=== PATIENT | female | born 1940 | race Caucasian/White ===

== ENCOUNTER 2024-01-08 22:32 | Inpatient (IN) | payer MEDICARE, SELFPAY ==
--- NOTE | 2024-01-08 22:48 | HPE_ITS ---
Date of service: 01/08/24 Time of Service: 23:40 Assessment and Plan Assessment and plan (1) Subcapital fracture of right femur: Status: Acute Assessment and plan: - Sustained after a fall 3 days prior to arrival to the emergency department 8 [facility] -Diagnosed on imaging at [facility] -Discussed case with orthopedic surgeon Dr. Coronado who will take patient to the OR today 01/09/2024 -Continue as needed IV morphine 1 mg every 4 hours -Appreciate PT consultation for postop evaluation (2) HTN (hypertension): Status: Chronic Assessment and plan: - Hold home antihypertensives at this time (3) COPD without exacerbation: Assessment and plan: - Continue home inhaler regimen History of Present Illness History of Present Illness Chief Complaint: right hip pain Narrative: 83-year-old female with past medical history of hypertension, and COPD presents to [facility] as a transfer from [facility] emergency department after experiencing right hip fracture. Patient states that she been in her usual state of health but 3 days ago she fell on her right side onto her hip. She experienced some pain but over the subsequent 3 days has been able to ambulate with her walker. However, the pain progressively got worse which prompted her presented to [facility]. While at [facility] emergency department patient had normal vital signs, physical exam was suggestive of a right hip fracture with shortened and internally rotated right hip which was confirmed on imaging to have be a right subcapital femoral neck fracture. [facility] did not have orthopedic surgery coverage over the weekend and ultimately was able to discuss case with Dr. Coronado of orthopedics at [facility] stated he would be able to operate on the patient this weekend. At which time [facility] emergency room physician Dr. Goodrich reached out to [facility] hospitalist for admission for patient with a right hip fracture requiring surgical intervention. Review of Systems All systems reviewed & are unremarkable except as noted in HPI and below PFSH All Active Problems (Updated 01/09/24 @ 06:50 by Palmer Vora MD) HTN (hypertension) (Chronic) Subcapital fracture of right femur (Acute) Medical History (Updated 01/09/24 @ 06:50 by Palmer Vora MD) COPD without exacerbation Social History Smoking/Tobacco Use Status: Never Tobacco: How many years used: 30 Smoking risk assessment performed?: Yes Alcohol Intake: never Housing: assisted living facility Do you feel safe at home: Yes Do you feel safe in your relationship?: Yes Additional Social history: lives with Meds Allergies and Home Medications Allergies Allergy/AdvReac Type Severity Reaction Status Date / Time amitriptyline AdvReac Unknown Other (See Verified 01/09/24 02:25 Comment) Home Medications Medication Instructions Recorded Confirmed Type FLUTIC 2 spray intranasal DAILY 01/09/24 01/09/24 History acetaminophen 500 mg capsule 500 mg PO Q6H PRN 01/09/24 01/09/24 History albuterol sulfate 90 mcg/actuation 2 inh inhalation Q4H PRN 01/09/24 01/09/24 History aerosol inhaler alprazolam 0.5 mg tablet 0.5 mg PO BID-TID PRN 01/09/24 01/09/24 History amlodipine 10 mg tablet 10 mg PO DAILY 01/09/24 01/09/24 History atorvastatin 10 mg tablet 10 mg PO QHS 01/09/24 01/09/24 History betamethasone, augmented 0.05 % 1 applic topical DAILY PRN 01/09/24 01/09/24 History topical ointment cholecalciferol (vitamin D3) 25 cap PO DAILY 01/09/24 01/09/24 History cyclobenzaprine 10 mg tablet 10 mg PO HS 01/09/24 01/09/24 History fexofenadine 180 mg tablet 180 mg PO DAILY 01/09/24 01/09/24 History (Allergy Relief (fexofenadine)) fluticasone 100 mcg-salmeterol 50 1 inh inhalation BID 01/09/24 01/09/24 History mcg/dose blistr powdr for inhalation (Advair Diskus) lisinopril 40 mg tablet 40 mg PO DAILY 01/09/24 01/09/24 History magnesium oxide 400 mg PO BID 01/09/24 01/09/24 History metoprolol tartrate 50 mg tablet 50 mg PO BID 01/09/24 01/09/24 History multivitamin-ferrous 1 tab PO DAILY 01/09/24 01/09/24 History fumarate-folic acid 18 mg-400 mcg tablet (Centrum Complete) omeprazole 40 mg capsule,delayed 40 mg PO DAILY 01/09/24 01/09/24 History release simethicone 125 mg capsule (Gas 125 mg PO BID PRN 01/09/24 01/09/24 History Relief (simethicone)) solifenacin 10 mg tablet 10 mg PO DAILY 01/09/24 01/09/24 History thiamine HCl (vitamin B1) 100 mg 100 mg PO DAILY 01/09/24 01/09/24 History tablet triamcinolone acetonide 0.1 % 1 applic topical DAILY 01/09/24 01/09/24 History lotion Exam Narrative Exam Narrative: Well-appearing older female laying in bed in no acute distress, ANO x 4, heart regular rhythm, lungs clear to auscultation bilaterally, abdomen soft, nontender, nondistended, right lower extremity shortened and externally rotated Results Labs 01/09/24 06:04 01/09/24 06:04 Time Spent Time spent with Patient: >75 minutes Time was spent: preparing to see the patient(eg.review tests), obtaining and/or reviewing separately otained hiistory, ordering medications,tests, procedures, referring, communicating with other health acute care physical therapist, indepentently interpreting results, counseling the patient and care coordination
[2024-01-09 01:53] VITALS: BP 155/69; PULSE 70; RESP 19; TEMP 36.4; O2SAT 92
[2024-01-09] MEDS: Acetaminophen 325 MG TAB PO (03:03)
[2024-01-09 03:33] VITALS: BP 155/69; PULSE 70; RESP 19; TEMP 36.4; O2SAT 92
[2024-01-09 06:41] LABS: HCT 34.3 % (36.0-46.0); HGB 11.6 g/dL (11.2-15.7); MCH 30.9 pg (27.0-33.0); MCHC 33.8 % (32.0-36.0); MCV 91 fL (80-95); MPV 9.5 fL (8.0-11.0); Platelet Count 229 10^3/uL (130-400); RBC 3.76 10^6/uL (3.93-5.22); RDW 13.3 % (11.7-14.6); RDW-SD 44.9 fL; WBC 5.67 10^3/uL (4.4-10.8)
[2024-01-09] MEDS: MORPHine 2 MG/ML SYR 1 MG IVP (06:44)
[2024-01-09 06:57] LABS: BUN 27 mg/dL (7-18); CREATININE 1.3 mg/dL (0.55-1.02); Calcium 9.2 mg/dL (8.5-10.1); Chloride 102 mmol/L (98-107); Estimated GFR 41.06 (mL/min/1.73m2); Glucose 101 mg/dL (74-106); Magnesium 1.6 mg/dL (1.8-2.4); Potassium 4.4 mmol/L (3.5-5.1); Sodium 137 mmol/L (136-145)
[2024-01-09 07:17] VITALS: BP 155/68; PULSE 68; RESP 18; TEMP 36; O2SAT 91
--- NOTE | 2024-01-09 07:53 | OCONE_ITS ---
Date of service: 01/09/24 Time of Service: 07:15 History of Present Illness History of Present Illness Chief Complaint: Right Hip Pain Narrative: Lilia is an 83-year-old functionally dependent female who presents in transfer from [facility] for a right hip fracture. She reports falling, with mechanical fall, on Thursday. She was able to get up but had notable pain with weightbearing. She did utilize a walker with only partial weightbearing on the right leg. She saw her primary care practitioner on Thursday who obtained an x-ray showing a hip fracture on the right side. She was at [facility] but they had no orthopedic coverage and are unable to find other sites for transfer. I excepted the patient for surgery with the hospitalist managing. She reports being her usual state of health. She has had no acute medical exacerbations. She does report having arthritis throughout her whole body including her back and her knees. She does not report the right hip as being a significant limiting factor or a cause of pain prior to her fall. While she is not ambulating, she has had minimal pain. She denies numbness or tingling. She does describe some weakness in her legs with prolonged ambulation prior to her fall. She reports groin pain when she walks. No pain down the leg. She has some baseline pain in the knee which is no different than it usually is. Consult Reason Right femoral neck fracture Assessment and Plan Assessment and plan (1) Subcapital fracture of right femur: Status: Acute Assessment and plan: Lilia is an 83-year-old female who fell on Thursday. She has been able to minimally ambulate over the past few days but with pain. She was seen in [facility] and diagnosed with a subcapital femoral neck fracture. Wanted denies significant pain even with examination. She was able to walk on this, although with assistance. For these reasons this seems to be a stable variety of femoral neck fracture which could heal nonoperatively but typically be fixed with screws to prevent any further displacement. However, we do not know is if there is any disruption of the blood vessel significant enough to lead to avascular necrosis, osteonecrosis, which would limit terminal healing and potentially lead to complications requiring further intervention. There is a trend in the literature to move towards arthroplasty in the situations to minimize those potential future risk and also improve short-term mobility. I reviewed these 2 options with Lilia. She does have notable arthritis about the right hip which would be addressed at the time of arthroplasty. I compared that versus doing the screw fixation which is a minimally invasive technique to hold the head in place but does have those risk of upwards of 20% failure in the long-term but does not carry the risk of increased blood loss, dislocation, iatrogenic fracture. She seems to be apprehensive about any, more invasive surgery. I spent some time reviewing the 2 options with her and given the benign examination, some maintain ambulation, and larger surgery concerns, she elects to proceed with percutaneous screw fixation of the femoral neck fracture. Once again I reviewed the risk of this to include bleeding, infection, pain, stiffness, weakness, subsidence, hardware prominence, hardware failure, osteonecrosis, worsening arthritis, need for repeat procedures, blood clot, cardiopulmonary demise. Despite these risk, she elects to proceed. Qualifiers: Encounter type: initial encounter Fracture type: closed Qualified Code(s): S72.011A - Unspecified intracapsular fracture of right femur, initial encounter for closed fracture Review of Systems All systems reviewed & are unremarkable except as noted in HPI and below PFSH All Active Problems (Updated 01/09/24 @ 08:22 by Forest Coronado MD) HTN (hypertension) (Chronic) Subcapital fracture of right femur (Acute) Medical History COPD without exacerbation Social History Smoking/Tobacco Use Status: Never Tobacco: How many years used: 30 Smoking risk assessment performed?: Yes Alcohol Intake: never Drug use: Never Housing: assisted living facility Do you feel safe at home: Yes Do you feel safe in your relationship?: Yes Additional Social history: lives with Exam Narrative Exam Narrative: Resting in the bed in the supine position. She has her right hip flexed. Evaluation of the right hip shows no overlying skin changes. No defect in the skin. She is able to actively move the right hip and even perform active hip flexion and straight leg raise with minimal pain. She seems to have some discomfort in the face although she does not report it. She is able to tolerate internal extra rotation of the right hip with minimal pain except for maximal internal rotation which was not pushed. Axial loading of the hip causes some pain. Valgus deformity of the right knee with some pain about both medial lateral joint lines. No swelling, no effusion. No ecchymosis down the leg. Sensation intact to light touch over the deep and superficial peroneal nerve and tibial nerve. Palpable DP and PT pulse. Results Last Vital Signs Temp 36.0 C L 01/09/24 07:17 Pulse 68 01/09/24 07:17 Resp 18 01/09/24 07:17 BP 155/68 H 01/09/24 07:17 Pulse Ox 91 L 01/09/24 07:17 Labs 01/09/24 06:04 01/09/24 06:04 Labs: Laboratory Results - last 24 hr 01/09/24 06:04 WBC 5.67 RBC 3.76 L Hgb 11.6 Hct 34.3 L MCV 91 MCH 30.9 MCHC 33.8 RDW 13.3 Plt Count 229 MPV 9.5 Sodium 137 Potassium 4.4 Chloride 102 Carbon Dioxide 24.0 Anion Gap 11.0 BUN 27 H Creatinine 1.3 H Est GFR (CKD-EPI 2020) 41.06 Glucose 101 Calcium 9.2 Magnesium 1.6 L Imaging Imaging Studies: X-ray of the pelvis and right hip was reviewed from [facility]. This shows a valgus impacted fracture about the right subcapital femoral neck. There is notable arthritic change seen in the lower lumbar spine as well as both hips marked by joint space narrowing and osteophytes. No other suspicious lesions. CT scan of the right hip and pelvis was also reviewed. This was again shows the aforementioned fracture. I do not see any extension into the head. There is some minor anterior translation and tilt of a few millimeters and about 10 degrees. There is some impaction of the femoral head onto the femoral neck with a small area of buckling of the lateral femoral cortex. Extensive arthritic changes noted within the lower lumbar spinal segments visualized on this image along with some within the SI joints and in the bilateral hips marked by osteophyte some subchondral cyst and joint space narrowing.
--- NOTE | 2024-01-09 08:00 | DI.RAD_ITS ---
Exam(s) XR HIP RT IN OR EXAM: XR HIP RT IN OR CLINICAL HISTORY: Subcapital fracture of right femur TECHNIQUE: 2D and realtime digital imaging was performed. CONTRAST MATERIAL: Refer to procedure report. COMPARISON: No exams were available for comparison FINDINGS: Fluoroscopy was provided for Dr. Coronado during the performance of a internal fixation of a subcapi jess right femoral neck fracture.. Please refer to the procedure report for complete details. Ka,r=6.04 mGy IMPRESSION: RADIATION DOSE DELIVERED: 0.0 0.0 0
--- NOTE | 2024-01-09 08:10 | ANES.PREOP_ITS ---
General Info Date of Service Date Performed: 01/09/24 Height: 5 ft 5 in Weight: 70.307 kg Body Mass Index (BMI): 25.7 Surgical Procedure: Operation Date: 01/09/24 07:50 Proposed Procedure Side Surgeon p Hip Cannulated Fx Right Forest Coronado MD Meds Allergies and Home Medications Allergies Allergy/AdvReac Type Severity Reaction Status Date / Time amitriptyline AdvReac Unknown Other (See Verified 01/09/24 02:25 Comment) Home Medication Medication Instructions Recorded FLUTIC 2 spray intranasal DAILY 01/09/24 acetaminophen 500 mg capsule 500 mg PO Q6H PRN 01/09/24 albuterol sulfate 90 mcg/actuation 2 inh inhalation Q4H PRN 01/09/24 aerosol inhaler alprazolam 0.5 mg tablet 0.5 mg PO BID-TID PRN 01/09/24 amlodipine 10 mg tablet 10 mg PO DAILY 01/09/24 atorvastatin 10 mg tablet 10 mg PO QHS 01/09/24 betamethasone, augmented 0.05 % 1 applic topical DAILY PRN 01/09/24 topical ointment cholecalciferol (vitamin D3) 25 cap PO DAILY 01/09/24 cyclobenzaprine 10 mg tablet 10 mg PO HS 01/09/24 fexofenadine 180 mg tablet 180 mg PO DAILY 01/09/24 (Allergy Relief (fexofenadine)) fluticasone 100 mcg-salmeterol 50 1 inh inhalation BID 01/09/24 mcg/dose blistr powdr for inhalation (Advair Diskus) lisinopril 40 mg tablet 40 mg PO DAILY 01/09/24 magnesium oxide 400 mg PO BID 01/09/24 metoprolol tartrate 50 mg tablet 50 mg PO BID 01/09/24 multivitamin-ferrous 1 tab PO DAILY 01/09/24 fumarate-folic acid 18 mg-400 mcg tablet (Centrum Complete) omeprazole 40 mg capsule,delayed 40 mg PO DAILY 01/09/24 release simethicone 125 mg capsule (Gas 125 mg PO BID PRN 01/09/24 Relief (simethicone)) solifenacin 10 mg tablet 10 mg PO DAILY 01/09/24 thiamine HCl (vitamin B1) 100 mg 100 mg PO DAILY 01/09/24 tablet triamcinolone acetonide 0.1 % 1 applic topical DAILY 01/09/24 lotion Current Visit Medications: Current Medications Generic Name Dose Route Start Last Admin Trade Name Freq PRN Reason Stop Dose Admin Acetaminophen 0 mg 01/08/24 22:32 01/09/24 03:03 Acetaminophen 325 Mg Tab PO 650 mg Q4H PRN PRN Administration Docusate Sodium 100 mg 01/08/24 22:32 Docusate Sodium 100 Mg Cap PO TID PRN PRN Tranexamic Acid/Sodium Chloride 1,000 mg in 100 mls @ 600 mls/hr 01/09/24 08:00 IVPB PREOP TED IV Miscellaneous Supplies 1 each 01/08/24 22:45 Iv Access IV DIRECTED TED Morphine Sulfate 1 mg 01/09/24 06:09 01/09/24 06:44 Morphine 2 Mg/Ml Syr IVP 1 mg Q4H PRN PRN Administration Polyethylene Glycol 17 gm 01/08/24 22:32 Polyethylene Glycol 3350 17 Gm Packet PO DAILY PRN PRN Constipation Sodium Chloride 0 ml 01/08/24 22:32 Normal Saline Flush 10 Ml Syr IVP PRN PRN Sodium Chloride 0 ml 01/09/24 08:30 Normal Saline Flush 10 Ml Syr IVP BID TED Sodium Chloride 0 ml 01/08/24 22:32 Normal Saline 10 Ml Vial IJ DIRECTED PRN PFSH Active Problems Active Problems: Problem Status Onset Code HTN (hypertension) I10 Subcapital fracture of right femur S72.011A Medical History Medical History COPD without exacerbation Tobacco Smoking/Tobacco Use Status: Never Alcohol Alcohol Intake: never Substance Use Substance use: Never Vital Signs and Lab Results Vital Signs Most Recent Vital Signs in EMR: Most Recent Vital Signs Temp Pulse Resp BP Pulse Ox 36.0 C L 68 18 155/68 H 91 L 01/09/24 07:17 01/09/24 07:17 01/09/24 07:17 01/09/24 07:17 01/09/24 07:17 Lab Results 01/09/24 06:04 01/09/24 06:04 Blood Type / Crossmatch: 2 No Data to Display Complete Blood Count: 2 White Blood Count 5.67 10^3/uL (4.4-10.8) 01/09/24 06:04 Red Blood Count 3.76 10^6/uL (3.93-5.22) L 01/09/24 06:04 Hemoglobin 11.6 g/dL (11.2-15.7) 01/09/24 06:04 Hematocrit 34.3 % (36.0-46.0) L 01/09/24 06:04 Platelet Count 229 10^3/uL (130-400) 01/09/24 06:04 Complete Metabolic Panel: 2 Sodium 137 mmol/L (136-145) 01/09/24 06:04 Potassium 4.4 mmol/L (3.5-5.1) 01/09/24 06:04 Chloride 102 mmol/L (98-107) 01/09/24 06:04 Carbon Dioxide 24.0 mmol/L (21.0-32.0) 01/09/24 06:04 BUN 27 mg/dL (7-18) H 01/09/24 06:04 Creatinine 1.3 mg/dL (0.55-1.02) H 01/09/24 06:04 Est GFR (CKD-EPI 2020) 41.06 (mL/min/1.73m2) 01/09/24 06:04 Magnesium 1.6 mg/dL (1.8-2.4) L 01/09/24 06:04 Calcium 9.2 mg/dL (8.5-10.1) 01/09/24 06:04 Glucose 101 mg/dL (74-106) 01/09/24 06:04 Liver Function Panel: 2 No Data to Display Coagulation Panel: 2 No Data to Display Cardiac Panel: 2 No Data to Display Arterial Blood Gas: 2 No Data to Display Venous Blood Gas: 2 No Data to Display Pancreas Panel: 2 No Data to Display Thyroid Panel: 2 No Data to Display Infectious Disease: 2 No Data to Display Blood Cultures: 2 No Data to Display Toxicology Panel: 2 No Data to Display Imaging and Studies Imaging and Studies Study information below may be from another EMR and interpreted by another provider. Please see original notes in EMR for more complete details. EKG Summary: 01/08/2024: Sinus Bradycardia Anesthesia Assessment and Plan Anesthesia History Personal History: No History of Anesthesia Complications Family History: No Family History of Anesthesia Complications Exercise Tolerance Exercise Tolerance: Metabolic Equivalents>4 Cardiac & Pulmonary Exam Cardiac Exam: Normal S1/S2 Heart Sounds Pulmonary Exam: Clear Bilateral Breath Sounds Implantable Cardiac Device Does patient have a Pacemaker or an ICD?: No Airway Exam Known Difficult Airway: No Mallampati Class: 1 Mouth Opening: Normal (> 3cm) Thyromental Distance: Greater than 3 cm Neck Range of Motion: Full ROM Neck Circumference: Normal Teeth Condition: Removable Dentures/Plates Upper and Removable Dentures/Plates Lower ASA Classification ASA Score: ASA 3 Emergency Case?: No NPO Status NPO Status: NPO Clears >2 hours, Solids >8 hours Anesthesia Plan Resuscitation Status: Full Code Anesthesia Technique: Spinal Anesthesia Airway Planned: Natural Airway Monitors Used: Standard Monitors Preoperative Comments:: Reviewed Weeks Hospital records to include EKG. Patient with history of Stage 4 kidney disease, previous cardiac cath, negative at the time with positive stress test. Patient reports no new episodes of chest pain or chest pressure. Recently developed difficulty walking upstairs secondary to SOB/COPD. Patient has never had major surgery. Plan for SAB with back GA. 20gIV right AC.
[2024-01-09 08:13] VITALS: BMI 25.7
[2024-01-09] MEDS: Lactated Ringers 1,000 ML 125 ML IV (08:44)
[2024-01-09] MEDS: ceFAZolin 2 GM/50 ML BAG 100 GM (09:09)
[2024-01-09] MEDS: Tranexamic Acid 1,000 MG/10 ML VIAL 1000 MG (09:19)
[2024-01-09] MEDS: Bupivacaine 0.25% Pres-Free W/EPI 30 ML VIAL (09:20)
--- NOTE | 2024-01-09 09:55 | IN_ITS ---
Date of service: 01/09/24 PT Notes Visit Reasons: Hip fracture Date: 01/09/24 Referring Doctor: Forest Coronado MD PT Orders: PT CONSULT: S/P screw fixation of R FNF, WBAT w assistive devices Precautions: WBAT R LE Patient Profile/Admitting Diagnosis: 89 y o female S/P R FNF 01/09/24, post fall . She ambulated on leg x 3 days, presented to [facility] due to progressive pain resulting in confirmation of FNF - transferred to [facility] for ortho consult and availability for surgery. Social History/Home Situation: Lives in a private home with her , ramp to enter, 1 level home. Step over tub, but has a shower chair or edge of tub to sit to swing her legs over. Grab bar next to toilet. She was using a cane prior to fall. She does have a daughter who also lives nearby Equipment Owned/DME: [employer], [employer] Subjective: Reporting 5/10 discomfort in low back, reports significant history of lumbar arthritis and bilateral knee arthritis that causes her discomfort on a good day. At the moment having no discomfort in the right hip. She has not had anything to eat or drink since yesterday, so she is feeling fatigued and shaky due to that. Objective: General Observation: Lying reclined in hospital bed, Zheng in place, BP cuff left arm Mental Status: A and O x 3 Vitals: BP 175/80, O2 sat varying between 88-99% throughout, HR 60-105 throughout. RN aware - and comfortable with vitals, monitoring post anesthesia. ROM: Right Upper Extremity: WNL Left Upper Extremity: WNL Right Lower Extremity: Right hip flexion 80 degrees, knee mobility WNL, ankle WNL, hip ER hooklying 30 degrees Left Lower Extremity: Left hip flexion 100 degrees, knee mobility WNL, ankle WNL, hip ER hooklying 45 degrees Strength: Right Upper Extremity: Grossly 4+/5 Left Upper Extremity: Grossly 4+/5 Right Lower Extremity: Hip flexion 3/5, quad 4/5, hamstring 4/5, DF and PF 5/5 Left Lower Extremity: Grossly 5/5 throughout Bed Mobility/Transfers: SBA reclined 45 degrees HOB to EOB STS EOB to RW, CGA x 1 Stand pivot transfer, x 5 steps, to recliner chair, CGA x 1, RW. Verbal cues for proper manipulation of assistive device, foot placement, and we transferred Stand to sit and elevated recliner chair, CGA x 1, verbal cues for hand placement, independent with repositioning in chair Gait: WBAT R LE, verbal cues for manipulation of RW and proper weight transfer, CGX1 Balance: Static Sitting: Good Dynamic Sitting: Good Static Standing: Fair with RW Dynamic Standing: Poor with RW Special Tests: Mobility Limitations Standardized Measure [facility] AM-PAC 6 clicks Basic Mobility Inpatient Short Form: 50% disability Informed Consent/Education: Patient instructed in purpose of PT consult and plan of care. Treatment: Initial evaluation [id number] HEP: Advised on QS, GS 10 sec x 10 hourly, ankle pumps x 30 hourly. Assessment: Patient is a previously independent with SPC 83 year old female referred to physical therapy services with reason for PT evaluation of R FNF internal fixation 01/09/24. Patient presents with appropriate post op limitations of gait abnormality with dependence of RW to manage R LE pain post ORIF, with WBAT clearance, ROM, strength, and pain impairments. Impairments allow for functional deficits of She requires skilled PT intervention to maximize safety mobility to allow for safe transition home once medically stable, and attend to below deficits. Anticipate discharge home with family supervision, with HHPT until able to safely transfer to vehicle with less assist. Impairments are contributing to the following functional limitations: CGA required for bed mobility, STS, transfers Dependent on RW for transfers and ambulation Unable to ambulate household distance without CG Patient is assessed as moderate complexity based on the following: History: HTN, COPD, independently functioning w/SPC at baseline Examination: impairment and functional limitations as noted above Presentation: Evolving Decision Making: Easy Goals: Goals X1 week 1. Supine-Sit : Independent 2. Sit-Supine : Independent 3. Sit-Stand : SBA RW 4. Stand-Sit : SBA RW 5. Bed-Chair : SBA RW 6. Chair-Bed : SBA RW 7. Gait : 20-30 ft, household distance, RW, SBA 8. Independent with HEP 9. Family comfortable w SBA mobility supervision Plan of Care/Treatment Plan: 1-2x/day, 7 days/week x 1 week. Plan of care has been reviewed with the WAREHOUSE SHIFT SUPERVISOR providing the service under Physical Therapy direction. Initiate Physical Therapy intervention for strengthening, bed mobility, transfers, gait, stairs, balance training, use of assistive device. DISCHARGE RECOMMENDATIONS: Home with family supervision, HHPT when medically stable and achieved SBA and family education. TREATMENT CODE/TIME: 10:20-11:00, [id number] Maribel Alatorre, JOVI [facility]
--- NOTE | 2024-01-09 09:55 | ROE_ITS ---
Date of service: 01/09/24 Time of Service: 09:00 Operative Note Operative Note DATE OF PROCEDURE: 01/09/24 PRE-OP DIAGNOSIS: Right valgus impacted subcapital femoral Neck Femur Fracture POST-OP DIAGNOSIS: same PROCEDURE: Cannulated Screw Fixation of Proximal Femur Fracture -right SURGEON: Forest Coronado ANESTHESIA TYPE: Spinal Refer to Anesthesia Record ESTIMATED BLOOD LOSS: 5 PATHOLOGY: none sent COMPLICATIONS: None Patient was transported to: PACU Patient's condition: stable Implants: Synthes 7.3mm cannulated screws (x3) Indications: Lilia is a 83-year-old female who presented to the [facility] Emergency Department after a fall. X-rays confirmed the diagnosis of a femoral neck fr acture of the proximal femur without significant displacement or comminution. I reviewed the possible treatment options. She has been mobilizing on the sit with some weightbearing and had no significant pain on exam. I discussed arthroplasty versus fixation. After thorough discussion of the pros and cons of each, both considering the near and long-term risk and potential complications, she elected to proceed with operative fixation. I discussed the technical details of the surgery. I reviewed the risks such as bleeding, infection, pain, stiffness, malunion, nonunion, hardware prominence, hardware faiilure, malrotation, avascular necrosis, blood clot. Despite these risks, Lilia agreed to proceed. Findings: A femoral neck fracture was confirmed to be stable and thus secured with 3 7.3mm cannulated screws in a percutaneous fashion. Procedure Description: Lilia was taken back to the operating room. A spinal anesthestic was then administered. The feet were wrapped with cast padding and Coban and then placed into the boot liners and then into the boots. Care was taken to protect the skin and make sure the heels were fully down and the boots were stable. The patient was then positioned onto the HANA table. Both legs were held in a neutral position. SCDs were applied. The patient was then slid down onto a perineal post. The nonoperative leg was scissored. Prophylactic antibiotics in the form of Cefazolin were administered. 1g of Tranxemic Acid was given intravenously within 30 minutes of incision. The right leg was then prepped with Chloraprep and draped in a standard fashion with shower-curtain type drape with Iodine impregnated skin protection. A timeout to confirm correct identity, side and site, procedure, allergies, anesthesia, and medical concerns was performed. Using fluoroscopy, the starting point was marked over the lateral hip. The first pin was placed into a posterior?inferior position to form an inverted triangle. This was made sure to start proximal of the lesser trochanter. It was advanced into the femoral head and confirmed to be in a good position both on the AP and the lateral. 2 additional pins from the 7.3 mm cannulated system replaced, both superior, 1 anterior 1 posterior. These were once again confirmed to be in good position on fluoroscopy, forming an inverted triangle position. They were advanced to the appropriate position in the path of the pin was cut with a knife. The pin length was measured and the lateral cortex was opened with a drill. The appropriate sized screws were then placed loosely. Once all 3 were in position I then proceeded circumferentially tightening each screw by 1 or 2 turns into each were tightened. These had excellent fixation. There is no screw penetration in the head and no penetration within the lateral cortex. AP and lateral x-rays were once again obtained to confirm appropriate positioning throughout both planes and without displacement nor fracture propagation. The wounds were thoroughly irrigated. The soft tissues were then injected with 0.5% bupivacaine with epinephrine. The wounds were closed with a buried 4-0 Monocryl in interrupted fashion. The wounds were dressed with a Mepilex silver dressing. At the end of the case, all counts were correct. Lilia tolerated the procedure well without known complication and was taken to the PACU for recovery. Physical therapy will start post-operatively, weigh-bearing as tolerated with assistive devices. Anticoagulation may resume this evening. 3 doses of post- operative antibitiocis for prophylaxis will be administered.
--- NOTE | 2024-01-09 10:28 | PGE_ITS ---
Date of Service Date of service: 01/09/24 Time of Service: 10:29 Assessment and Plan Assessment and plan (1) Subcapital fracture of right femur: Status: Acute Assessment and plan: - Sustained after a fall 3 days prior to arrival to the emergency department [address] [place] [address] -Diagnosed on imaging at [facility] -OR today with orthopedic surgeon Dr. Coronado will discuss multimodal pain management and ASA 81 mg BID post-op -Multimodal pain management : Scheduled APAP, considering celebrex if needed, and as needed IV morphine 1 mg every 4 hours -Bowel management med -PRN antiemetic -PT consultation for postop evaluation in progress -CBC and BMP in AM Qualifiers: Encounter type: initial encounter Fracture type: closed Qualified Code(s): S72.011A - Unspecified intracapsular fracture of right femur, initial encounter for closed fracture (2) HTN (hypertension): Status: Chronic Assessment and plan: - Resume home antihypertensives post-op -First Metoprolol 50 mg po BID -Then as tolerated by BP parameters Lisinopril 40 po daily and amlodipine 10 mg PO daily (3) COPD without exacerbation: Assessment and plan: - On home inhaler regimen (4) Hypomagnesemia: Status: Acute Assessment and plan: Replete On oral supplementation Mg level in AM (5) On deep vein thrombosis (DVT) prophylaxis: Status: Acute Assessment and plan: OR today will discuss the need for ASA 81 BID post surgery and on discharge Starting on Enoxaparin 40 mg SC daily (6) Discharge planning issues: Status: Acute Assessment and plan: Home with PT when medically stable leaves in [place] consulting CM re: HH in [place] Discussed with Dr. Win Subjective Subjective Patient reports: feels better, still having pain, pain is less, tolerating liquids well, tolerating a regular diet, voiding w/o difficulty (boo), flatus, no bowel movement, nausea (subsiding ), afebrile and other (Sleeping poorly lately; agrees to have melatonin); denies diarrhea, vomiting, shortness of breath or fever Exam Narrative Exam Narrative: Constitutional The patient is sitting in chair without acute distress HENMT: Head is atraumatic, normocephalic.. Facial structures with normal appearance Eyes: Well aligned, intact ROM Neck: Normal ROM, no meningeal signs Neuro:alert and oriented to self, person, place, time and situation. No neurological focal deficit Chest:Chest is symmetrical and normal appearance Resp: Normal respiratory pattern,clear lungs bilaterally Cardio: regular rhythm, S1, S2, no murmur, positive radial andpedal pulses, no edema GI: Abdomen is rounded not distended, soft and non tender, bowel sounds are present : Negative Costovertebral angle tenderness, no bladder distension Back/spine/Pelvis: No back tenderness, normal alignment Integumentary: No skin lesions or rash; intact silver mepilex dressing to right hip, no bruising seen on exposed skin Extremities: strength 5/5 to bilateral lower and upper extremities Psych: RASS 0, congruent mood and normal affect. Objective Last Vital Signs Temp 36.0 C L 01/09/24 07:17 Pulse 68 01/09/24 07:17 Resp 18 01/09/24 07:17 BP 155/68 H 01/09/24 07:17 Pulse Ox 91 L 01/09/24 07:17 Laboratory Results - last 24 hr 01/09/24 06:04 WBC 5.67 RBC 3.76 L Hgb 11.6 Hct 34.3 L MCV 91 MCH 30.9 MCHC 33.8 RDW 13.3 Plt Count 229 MPV 9.5 Sodium 137 Potassium 4.4 Chloride 102 Carbon Dioxide 24.0 Anion Gap 11.0 BUN 27 H Creatinine 1.3 H Est GFR (CKD-EPI 2020) 41.06 Glucose 101 Calcium 9.2 Magnesium 1.6 L Time Spent with Patient Time Spent with Patient: >50 minutes Time was spent: preparing to see the patient(eg.review tests), obtaining and/or reviewing separately otained hiistory, ordering medications,tests, procedures, referring, communicating with other health life care planner, indepentently interpreting results, counseling the patient and care coordination
[2024-01-09] MEDS: Normal Saline Flush 10 ML SYR IVP ×3 (11:02→22:02)
--- NOTE | 2024-01-09 11:02 | INITIAL_ITS ---
Date of service: 01/09/24 Time of Service: 12:01 Care Management Initial Assmt Initial Assessment REASON FOR HOSPITALIZATION:: Hip fracture PREVIOUS FUNCTIONAL STATUS/SOCIAL/FAMILY SUPPORTS:: Lilia lives in [place], [place] with her , Aroldo. They have five children; three girls and two boys. Four of them are local, and one son lives in [place]. They live in a single level home with a ramp to enter. She uses a cane and a 4WW, and requires CGA for transfers and ambulation, and Aroldo does the cooking. Lilia is independent with personal care ADLs. CURRENT FUNCTIONAL STATUS:: Lilia was sitting up in her chair when CM met with her. Her , Aroldo, and daughter, Magdalene were in the room visiting. Lilia was pleasant and engaged well in conversation, noting that she is doing well after surgery, and not in any pain. She stated that she worked with PT after surgery this morning, and did well, which surprised her, as she had been in a lot of pain before the surgery. She stated that per provider, she will likely be ready for discharge tomorrow, which she is comfortable with. CM discussed HH services, which she is agreeable to. CM will request HH PT and MASTER LAY OUT SPECIALIST, to help coordinate additional services in her community. CM will continue to follow. ADVANCE DIRECTIVES:: Not on file at [facility] Has patient been provided with info about the portal/API?: Yes Did the patient sign up for the portal?: No CODE STATUS:: Full Code INSURANCE COVERAGE / FINANCIAL ISSUES:: MCR CURRENT HOME/COMMUNITY SERVICES/EQUIPMENT:: SPC, 4WW PRIMARY CARE PHYSICIAN:: Brina Cottrell POTENTIAL DISCHARGE NEEDS:: Evaluations for further needs, follow up appointments PATIENT/FAMILY EDUCATION NEEDS:: Review discharge instructions and limitations, discussion of self care needs including ask me three. ANTICIPATED BARRIERS TO DISCHARGE:: None. TRANSPORTATION:: Via private vehicle by family. PLAN:: Anticipate Lilia will return home once medically cleared, likely with new orders for HH PT & [facility] LAY OUT SPECIALIST. She will be transported home via private vehicle by family. She will follow up with her PCP and discharge plan of care. CM will continue to follow. PFSH All Active Problems (Updated 01/09/24 @ 10:32 by Ashley Schultz APRN) On deep vein thrombosis (DVT) prophylaxis (Acute) Discharge planning issues (Acute) Hypomagnesemia (Acute) HTN (hypertension) (Chronic) Subcapital fracture of right femur (Acute) Medical History COPD without exacerbation Social History Smoking/Tobacco Use Status: Never Tobacco: How many years used: 30 Smoking risk assessment performed?: Yes Alcohol Intake: never Drug use: Never Housing: assisted living facility Do you feel safe at home: Yes Do you feel safe in your relationship?: Yes Additional Social history: lives with SDOH(Care Management) Screening Will the Patient Participate in the Screening?: Yes Do you worry about having a steady place to live?: no Problems where you live: no known problems In the past 12 months, have you had to go without electric, gas, oil or water in your home?: no Have you or anyone in your house had to go without enough food to eat?: no Has lack of transportation kept you from medical appointments or from doing things needed for daily living?: no Has anyone in your support network made you feel unsafe for any reason?: no
[2024-01-09] MEDS: MAGNESIUM SULFATE 2 GM/50 ML BAG IVINF (11:03)
[2024-01-09] MEDS: ceFAZolin 1 GM/50 ML BAG IVPB ×2 (13:31→20:41)
[2024-01-09] MEDS: Docusate Sodium 100 MG CAP PO ×2 (15:19→20:42)
[2024-01-09] MEDS: Acetaminophen 325 MG TAB 650 MG PO (15:19)
[2024-01-09 15:35] VITALS: BP 154/54; PULSE 99; RESP 16; TEMP 36.4; O2SAT 92
--- NOTE | 2024-01-09 18:48 | W.ANESPOSTOP ---
Postoperative Evaluation Date, Time and Location Date Performed: 01/09/24 Time Performed: 11:35 Patient Location: Med/Surg Vital Signs Most Recent Imported Vital Signs: Most Recent Vital Signs Temp Pulse Resp BP Pulse Ox 36.4 C L 99 H 16 154/54 H 92 01/09/24 15:35 01/09/24 15:35 01/09/24 15:35 01/09/24 15:35 01/09/24 15:35 Pain Score Most Recent Pain Score: Most Recent Pain Score Pain Level [Right Hip] 0 01/09/24 12:36 Pain Level 5 01/09/24 15:35 Assessment Mental Status: Awake (Alert & Oriented to Patient Baseline) Airway and Respiratory Function: Patent airway with normal (patient baseline) respiratory exam Cardiovascular Function: Hemodynamically Stable Hydration Status: Adequately Hydrated Nausea & Vomiting: No Nausea or Vomiting Pain: Pain is tolerable per patient Peripheral Nerve Block: Patient did not receive a nerve block Postoperative Comments:: Up to chair, eating snack, reports feeling well.
[2024-01-09 19:25] VITALS: BP 130/75; PULSE 86; RESP 16; TEMP 36; O2SAT 94
[2024-01-09] MEDS: Budesonide/Formoterol 80/4.5 6.9 GM 60 PUFF INH IH (19:54)
[2024-01-09] MEDS: Enoxaparin 40 MG/0.4 ML SYR SC (20:41)
[2024-01-09] MEDS: Metoprolol 50 MG TAB PO (20:42)
[2024-01-09] MEDS: HYDROcodone 5/Acetaminophen 325 TAB PO (20:42)
[2024-01-09] MEDS: Magnesium Oxide 400 MG TAB PO (20:42)
[2024-01-09] MEDS: Aspirin E.C. 81 MG TABEC PO (20:42)
[2024-01-09] MEDS: Atorvastatin 10 MG TAB PO (20:42)
[2024-01-09] MEDS: Cyclobenzaprine 10 MG TAB PO (20:43)
[2024-01-09] MEDS: Melatonin 3 MG TAB PO (20:43)
[2024-01-09 23:12] VITALS: BP 141/68; PULSE 74; RESP 16; TEMP 36.5; O2SAT 91
[2024-01-10 03:11] VITALS: BP 139/74; PULSE 64; RESP 16; TEMP 36.4; O2SAT 93
[2024-01-10] MEDS: HYDROcodone 5/Acetaminophen 325 TAB PO (05:47)
[2024-01-10] MEDS: Acetaminophen 325 MG TAB 650 MG PO ×3 (05:47→20:29)
[2024-01-10] MEDS: ceFAZolin 1 GM/50 ML BAG IVPB (05:48)
[2024-01-10 06:45] LABS: Abs Immature Grans 0.05 10^3/uL (0.0-0.06); Absolute Basophil Count 0.03 10^3/uL (0.0-0.2); Absolute Monocyte Count 0.95 10^3/uL (0.1-0.8); Absolute Neutrophil Count 6.39 10^3/uL (1.2-6.7); Basophils % 0.4 %; HCT 35.4 % (36.0-46.0); HGB 11.8 g/dL (11.2-15.7); Immature Grans % 0.6 %; Lymphocytes % 11.9 %; MCH 30.6 pg (27.0-33.0); MCHC 33.3 % (32.0-36.0); MCV 92 fL (80-95); MPV 9.4 fL (8.0-11.0); Monocytes % 11.3 %; Neutrophils % 75.8 %; Platelet Count 275 10^3/uL (130-400); RBC 3.85 10^6/uL (3.93-5.22); RDW 13.2 % (11.7-14.6); RDW-SD 45.1 fL; WBC 8.42 10^3/uL (4.4-10.8)
[2024-01-10 07:05] LABS: Anion Gap 13.5 mmol/L (3-11); BUN 26 mg/dL (7-18); CO2 22.5 mmol/L (21.0-32.0); CREATININE 1.6 mg/dL (0.55-1.02); Calcium 9.5 mg/dL (8.5-10.1); Chloride 97 mmol/L (98-107); Glucose 123 mg/dL (74-106); Magnesium 2.3 mg/dL (1.8-2.4); Potassium 4.9 mmol/L (3.5-5.1); Sodium 133 mmol/L (136-145)
[2024-01-10] MEDS: Omeprazole 20 MG CAPCR PO (07:31)
[2024-01-10] MEDS: Docusate Sodium 100 MG CAP PO ×2 (07:31→20:29)
[2024-01-10] MEDS: Metoprolol 50 MG TAB PO ×2 (07:31→20:29)
[2024-01-10] MEDS: Aspirin E.C. 81 MG TABEC PO ×2 (07:31→20:29)
[2024-01-10] MEDS: Magnesium Oxide 400 MG TAB PO ×2 (07:31→20:29)
[2024-01-10] MEDS: Cholecalciferol (Vitamin D3) 1,000 UNIT TAB 1000 UNITS PO (07:35)
[2024-01-10] MEDS: Lisinopril 20 MG TAB 40 MG PO (07:35)
[2024-01-10] MEDS: Multivitamin w/Minerals TAB 1 TAB PO (07:36)
[2024-01-10] MEDS: amLODIPine 10 MG TAB PO (07:36)
[2024-01-10] MEDS: Normal Saline Flush 10 ML SYR IVP ×2 (07:36→20:29)
[2024-01-10] MEDS: Budesonide/Formoterol 80/4.5 6.9 GM 60 PUFF INH IH ×2 (08:08→19:54)
[2024-01-10 08:39] VITALS: BP 133/65; PULSE 64; RESP 19; TEMP 36; O2SAT 97
--- NOTE | 2024-01-10 11:09 | PGE_ITS ---
Date of Service Date of service: 01/10/24 Time of Service: 10:15 Assessment and Plan Assessment and plan (1) Subcapital fracture of right femur: Status: Acute Assessment and plan: Lilia is s/p percutaneous screw fixation of right femoral neck fracture. She is doing well without sign of complication. She has been able to mobilize with nursing and PT. From the orthopaedic perspective she should be able to go home with home health services. I recommend ASA 81mg BID for DVT prophylaxis or other as decided by the medicine team. Mepilex dressing for 2 weeks then d/c the dressing, all sutures are buried in the skin. WBAT with assistive devices. F/U with me in 4 weeks. D/C Zheng. Qualifiers: Encounter type: initial encounter Fracture type: closed Qualified Code(s): S72.011A - Unspecified intracapsular fracture of right femur, initial encounter for closed fracture Subjective Subjective Interval history since last seen: Lilia reports to be doing well. She has minimal pain. She has been able to mobilize with PT. She denies chest pain or shortness of breath. Exam Narrative Exam Narrative: Sitting up in the chair. NAD. Dressing c/d/i. +ADF/APF/EHL/FHL. SILT DP/SP/Tib. No significant pain with R hip internal or external rotation. Objective Last Vital Signs Temp 36.0 C L 01/10/24 08:39 Pulse 64 01/10/24 08:39 Resp 19 01/10/24 08:39 BP 133/65 01/10/24 08:39 Pulse Ox 97 01/10/24 08:39 Laboratory Results - last 24 hr 01/10/24 06:03 WBC 8.42 RBC 3.85 L Hgb 11.8 Hct 35.4 L MCV 92 MCH 30.6 MCHC 33.3 RDW 13.2 Plt Count 275 MPV 9.4 Immature Gran % 0.6 Neutrophils % 75.8 Lymphocytes % 11.9 Monocytes % 11.3 Eosinophils % 0.0 Basophils % 0.4 Nucleated RBC % 0.0 Absolute Neutrophils 6.39 Absolute Lymphocytes 1.00 L Absolute Monocytes 0.95 H Absolute Eosinophils 0.00 Absolute Basophils 0.03 Sodium 133 L Potassium 4.9 Chloride 97 L Carbon Dioxide 22.5 Anion Gap 13.5 H BUN 26 H Creatinine 1.6 H Est GFR (CKD-EPI 2020) 32.00 Glucose 123 H Calcium 9.5 Magnesium 2.3 Time Spent with Patient Time Spent with Patient: <25 minutes Time was spent: preparing to see the patient(eg.review tests), obtaining and/or reviewing separately otained hiistory, referring, communicating with other health farm or ranch animal caretaker, indepentently interpreting results and counseling the patient
[2024-01-10 11:18] VITALS: BP 120/60; PULSE 60; RESP 17; TEMP 36.5; O2SAT 95
--- NOTE | 2024-01-10 11:18 | PTTR_ITS ---
PT Notes Visit Reasons: Hip fracture Inpatient Physical Therapy Treatment Note [facility] Date: 01/10/24 SUBJECTIVE: Lilia states that her knee and hip are a little stiff this am. OBJECTIVE: []? PAIN: no pain, only stiffness. VITALS: ?monitored by [facility] Therapeutic Activities ([id number]): Direct one-on-one instruction in dynamic activities to improve functional performance. ? BED MOBILITY/TRANSFERS? pt seated in recliner ? Sit-stand: SBA? Stand-sit:S ? Provided skilled cues and instruction on performance and technique throughout. GAIT? Assistive Device:FWW ? Weight bearing: AT right Assist:SBA ? Distance:? 30'x2? Deviation: slow rossy? she performed sit to stand x5 with min use of arms. LAQ and hip abd/add with manual resistance x10 ea ASSESSMENT:? tolerated session quite well. No LOB, SOB or fatigue with mobility. Requires assistance only with managing IV pole and catheter. PLAN: anticipate d/c home today with , if she stays another night, we will continue to work on strength and functional mobility following PT POC TREATMENT CODE/TIME:20 min [id number]
[2024-01-10] MEDS: Normal Saline 1,000 ML 100 ML IV ×2 (13:15→23:05)
[2024-01-10 15:54] VITALS: BP 118/62; PULSE 65; RESP 17; TEMP 36.5; O2SAT 95
--- NOTE | 2024-01-10 19:14 | W.PM.PROGNOT ---
Date of Service Date of service: 01/10/24 Time of Service: 11:30 Assessment and Plan Assessment and plan (1) Subcapital fracture of right femur: Status: Acute Assessment and plan: - Sustained after a fall 3 days prior to arrival to the emergency department at [facility] -Diagnosed on imaging at [facility] -Surgical repair completed on 01/09/[address] Coronado; discussion regarding multimodal pain management and confirmation of continuation ASA 81 mg BID at discharge -Multimodal pain management : Scheduled APAP, considering celebrex twice daily on discharge, as needed IV morphine 1 mg every 4 hours while inpatient -Bowel management meds ordered PT consultation for postop evaluation in progress and home health PT at discharge -CBC and BMP in AM Qualifiers: Encounter type: initial encounter Fracture type: closed Qualified Code(s): S72.011A - Unspecified intracapsular fracture of right femur, initial encounter for closed fracture (2) DESTINI (acute kidney injury): Status: Acute Assessment and plan: Stage I with creatinine going from 1.3-1.6 IVF in progress and BMP in the morning (3) HTN (hypertension): Status: Chronic Assessment and plan: -Continue home antihypertensives Qualifiers: Hypertension type: primary hypertension Qualified Code(s): I10 - Essential (primary) hypertension (4) Hypomagnesemia: Status: Acute Assessment and plan: Replete On oral supplementation Mg level in AM (5) On deep vein thrombosis (DVT) prophylaxis: Status: Acute Assessment and plan: On ASA 81 BID post surgery and on discharge Continue Enoxaparin 40 mg SC daily (6) Discharge planning issues: Status: Acute Assessment and plan: Home with PT most likely in the morning lives in [place] consulting CM re: HH in [place] Discussed with Dr. Bolivar Subjective Subjective Patient reports: no new complaints, feels better, tolerating liquids well, tolerating a regular diet and voiding w/o difficulty; denies diarrhea, vomiting, shortness of breath or fever Exam Narrative Exam Narrative: Constitutional The patient is sitting in chair without acute distress, smiling and pleasant Neuro:alert and oriented to self, person, place, time and situation. No neurological focal deficit Resp: Normal respiratory pattern,clear lungs bilaterally Cardio: regular rhythm, S1, S2, positive radial andpedal pulses, no edema GI: Abdomen is not distended, soft and non tender, bowel sounds are present Integumentary: No skin lesions or rash; intact silver mepilex dressing to right hip Psych: RASS 0, congruent mood and normal affect. Objective Last Vital Signs Temp 36.5 C 01/10/24 15:54 Pulse 65 01/10/24 15:54 Resp 17 01/10/24 15:54 BP 118/62 01/10/24 15:54 Pulse Ox 95 01/10/24 15:54 Laboratory Results - last 24 hr 01/10/24 06:03 WBC 8.42 RBC 3.85 L Hgb 11.8 Hct 35.4 L MCV 92 MCH 30.6 MCHC 33.3 RDW 13.2 Plt Count 275 MPV 9.4 Immature Gran % 0.6 Neutrophils % 75.8 Lymphocytes % 11.9 Monocytes % 11.3 Eosinophils % 0.0 Basophils % 0.4 Nucleated RBC % 0.0 Absolute Neutrophils 6.39 Absolute Lymphocytes 1.00 L Absolute Monocytes 0.95 H Absolute Eosinophils 0.00 Absolute Basophils 0.03 Sodium 133 L Potassium 4.9 Chloride 97 L Carbon Dioxide 22.5 Anion Gap 13.5 H BUN 26 H Creatinine 1.6 H Est GFR (CKD-EPI 2020) 32.00 Glucose 123 H Calcium 9.5 Magnesium 2.3 Time Spent with Patient Time Spent with Patient: >50 minutes Time was spent: preparing to see the patient(eg.review tests), obtaining and/or reviewing separately otained hiistory, ordering medications,tests, procedures, referring, communicating with other health wound care specialist, indepentently interpreting results, counseling the patient and care coordination
[2024-01-10 19:32] VITALS: BP 133/66; PULSE 66; RESP 18; TEMP 36.2; O2SAT 96
[2024-01-10] MEDS: Enoxaparin 40 MG/0.4 ML SYR SC (20:28)
[2024-01-10] MEDS: Atorvastatin 10 MG TAB PO (20:29)
[2024-01-10] MEDS: Melatonin 3 MG TAB PO (20:29)
[2024-01-10] MEDS: Cyclobenzaprine 10 MG TAB PO (20:29)
[2024-01-10 23:22] VITALS: BP 130/65; PULSE 61; RESP 18; TEMP 35.9; O2SAT 94
[2024-01-11] MEDS: Acetaminophen 325 MG TAB 650 MG PO ×3 (02:32→11:11)
[2024-01-11 03:23] VITALS: BP 133/59; PULSE 60; RESP 18; TEMP 36.5; O2SAT 97
[2024-01-11 07:21] LABS: Anion Gap 9.4 mmol/L (3-11); BUN 31 mg/dL (7-18); CO2 22.6 mmol/L (21.0-32.0); CREATININE 1.5 mg/dL (0.55-1.02); Calcium 8.4 mg/dL (8.5-10.1); Chloride 102 mmol/L (98-107); Estimated GFR 34.58 (mL/min/1.73m2); Glucose 97 mg/dL (74-106); Potassium 4.5 mmol/L (3.5-5.1); Sodium 134 mmol/L (136-145)
[2024-01-11] MEDS: Budesonide/Formoterol 80/4.5 6.9 GM 60 PUFF INH IH (07:35)
[2024-01-11] MEDS: Omeprazole 20 MG CAPCR PO (07:39)
[2024-01-11] MEDS: Fexofenadine 180 MG TAB PO (07:39)
[2024-01-11] MEDS: Aspirin E.C. 81 MG TABEC PO (07:39)
[2024-01-11] MEDS: Multivitamin w/Minerals TAB 1 TAB PO (07:39)
[2024-01-11] MEDS: Magnesium Oxide 400 MG TAB PO (07:40)
[2024-01-11] MEDS: Cholecalciferol (Vitamin D3) 1,000 UNIT TAB 1000 UNITS PO (07:40)
[2024-01-11] MEDS: Metoprolol 50 MG TAB PO (07:40)
[2024-01-11] MEDS: amLODIPine 10 MG TAB PO (07:40)
[2024-01-11] MEDS: Docusate Sodium 100 MG CAP PO (07:40)
[2024-01-11] MEDS: Lisinopril 20 MG TAB 40 MG PO (07:40)
[2024-01-11] MEDS: Normal Saline Flush 10 ML SYR IVP (07:41)
[2024-01-11 08:10] VITALS: BP 118/72; PULSE 64; RESP 18; TEMP 36.6; O2SAT 93
--- NOTE | 2024-01-11 08:26 | PT.INTREAT ---
PT Notes Visit Reasons: Hip fracture Inpatient Physical Therapy Treatment Note [facility] Date: 01/11/24 PRECAUTIONS:WBAT RLE SUBJECTIVE: Lilia states that she is feeling good. She is hopeful that she'll be able to return home today. She does not have any stairs to manage, and has support at home from her . OBJECTIVE: ? PAIN: minimal VITALS: Monitored by nursing at initiation of session Therapeutic Activities ([id number]): Direct one-on-one instruction in dynamic activities to improve functional performance. ? BED MOBILITY/TRANSFERS? Sit-stand: supervision? Stand-sit: supervision, with min cues for hand placement and good carryover ? Provided skilled cues and instruction on performance and technique throughout. ? GAIT? Assistive Device: FWW? Weight bearing: WBAT RLE Assist: CGA initially, progressing to supervision only ? Distance:? 100' ? Deviation: slow rossy. Cues for walker progression (sliding vs lifting walker) with good carryover ? STAIRS:deferred, as patient does not have stairs at home ? Fitted with FWW and issued walker for home. ASSESSMENT:? Improved activity tolerance and gait and transfer techniques. Required minimal cues and assistance today, with excellent carryover. Appropriate for discharge once medically ready. Will continue PT intervention during her hospital stay to maximize mobility prior to returning home. PLAN: D/C home once medically appropriate. Would benefit from PT for consult to address potential home challenges (shower transfers, bathroom management) TREATMENT CODE/TIME: [id number] ([id number]) Sherice Hawkins, PT, DPT [facility]
--- NOTE | 2024-01-11 08:51 | DSE_ITS ---
Date of service: 01/11/24 Time of Service: 10:05 DS: Diagnosis Discharge Diagnosis (1) Subcapital fracture of right femur: Status: Acute (2) DESTINI (acute kidney injury): Status: Acute (3) HTN (hypertension): Status: Chronic (4) Hypomagnesemia: Status: Acute (5) On deep vein thrombosis (DVT) prophylaxis: Status: Acute Discharge Plan Disposition Patient Disposition: Home W/Home Health Services Condition: Improving Discharge Details Reason For Visit: Hip fracture Admit Date/Time: 01/08/24 22:32 Admit Provider: Palmer Vora Attending Provider: Palmer Vora [facility] Hospital Course: This 83 years old female patient with a past medical history significant for hypertension, COPD presented H on 01/08/24 as a transfer from [facility] ER status post right hip fracture. The patient stated at that time that she had fallen 3 days ago on her right hip but as the pain subsequently got worse she was unable to ambulate with a walker prompting her to seek medical attention. Physical exam was suggestive of right hip fracture which is shortened and internally rotated right hip confirmed her imaging as well right subcapital femoral neck fracture. As [facility] coverage the patient was transferred to [facility] with the case was discussed with Dr. Coronado of per orthopedics with plan surgery the next day. The hospitalist service admitted the patient to the medical surgical floor with a right hip fracture requiring surgical intervention. On 01/09/2024 Dr. Coronado proceeded to complete screw fixation of the proximal femur fracture on the right side. On postop day 1 creatinine elevation from 1.3-1.6 was noticed qualifying patient for DESTINI stage one without oliguria. IV fluids were initiated with creatinine of 1.5 the next day. Physical therapy recommendation on discharge is to continue home health physical therapy. The patient will be discharged home on ASA 81 mg twice a day for DVT prophylaxis, short course of 5 days scheduled acetaminophen 650 mg orally every 6 hours, Celebrex 100 mg orally twice a day. Bowel management medicine were also ordered. The patient will need to follow-up with Dr. Coronado in 4 weeks. The patient will need to follow-up with her primary care practitioner within 7 days of discharge and a follow-up basic metabolic panel prior to this appointment. Discussed with Dr. Bolivar Home Meds and New Rx's Prescriptions: New acetaminophen 325 mg capsule 650 mg PO Q6H Qty: 40 0RF celecoxib 100 mg capsule 100 mg PO BID Qty: 60 0RF docusate sodium 100 mg capsule 100 mg PO BID Qty: 60 0RF aspirin 81 mg tablet,delayed release (DR/EC) 81 mg PO BID Qty: 60 0RF Continued Centrum Complete 18-400 mg-mcg tablet 1 tab PO DAILY thiamine HCl (vitamin B1) 100 mg tablet 100 mg PO DAILY magnesium oxide 400 mg magnesium tablet 400 mg PO BID cholecalciferol (vitamin D3) 25 cap PO DAILY cyclobenzaprine 10 mg tablet 10 mg PO HS fexofenadine [Allergy Relief (fexofenadine)] 180 mg tablet 180 mg PO DAILY simethicone [Gas Relief (simethicone)] 125 mg capsule 125 mg PO BID PRN Rx Instructions: administer after meals triamcinolone acetonide 0.1 % lotion 1 applic topical DAILY betamethasone, augmented 0.05 % ointment 1 applic topical DAILY PRN amlodipine 10 mg tablet 10 mg PO DAILY omeprazole 40 mg capsule,delayed release(DR/EC) 40 mg PO DAILY FLUTIC 2 spray intranasal DAILY Rx Instructions: EACH NOSTRIL solifenacin 10 mg tablet 10 mg PO DAILY lisinopril 40 mg tablet 40 mg PO DAILY alprazolam 0.5 mg tablet 0.5 mg PO BID-TID PRN fluticasone propion-salmeterol [Advair Diskus] 100-50 mcg/dose blister with device 1 inh inhalation BID albuterol sulfate 90 mcg/actuation HFA aerosol inhaler 2 inh inhalation Q4H PRN atorvastatin 10 mg tablet 10 mg PO QHS metoprolol tartrate 50 mg tablet 50 mg PO BID Held acetaminophen 500 mg capsule 500 mg PO Q6H PRN Hold Instructions: Resume on 01/18/24. As per PCP Discharge Instructions Additional Instructions: Hip Fracture Discharge Instructions Activity: You may move and walk as tolerated but I would recommend to always use the walker for the first 4-6 weeks while the fracture heals. You have no restrictions on movement or positioning, but do not try to force what you do. You will find some stiffness and weakness. Do not try to strengthen this too early, continue to practice walking. Dressing: Keep the surgical dressing in place for at least one week. After the first week it may be removed and replace with light gauze and tape or bandaid or nothing. It may get wet after 3 days but avoid soaking the dressing. If it gets wet, just lightly pat dry. Follow-up: 4 weeks Referrals: Brina Cottrell [Primary Care Provider] - (F/u within 7 days please) Forest Coronado MD [ [facility] STAFF PHYSICIAN] - 02/08/24 9:45 am Activity:: Activity as Tolerated Equipment/Supplies:: Walker Diet:: As Tolerated Discharge Orders Discharge Orders: Discharge Order (Routine); Ordered 01/11/24 Ordered By: Ashley Schultz Other Ambulatory Orders: Basic Metabolic Panel (Routine) Timeframe: 20240114 Facility: [facility] - Location: Laboratory Outpatient - [facility] Ordered By: Ashley Schultz DS: Summary Time Spent with Patient providing and/or coordinating discharge services: Greater than 30 minutes Status at Discharge Functional status at discharge: uses cane/walker Overall status at discharge: patient is progressing back to baseline Mental Status: mental status grossly normal Speech and Movement: speech and movement normal Mood: congruent mood Affect: normal affect Quality:SDOH Health Related Social Needs: No Data to Display Exam Narrative Exam Narrative: Constitutional The patient is sitting in chair without acute distress, smiling and pleasant Neuro:alert and oriented X3 .No neurological focal deficit Resp: Cclear lungs bilaterally Cardio: regular rhythm, S1, S2, positive radial and pedal pulses GI: Abdomen is not distended, soft and non tender, bowel sounds are present Integumentary: No skin lesions or rash; intact mepilex dressing to right hip Psych: RASS 0, congruent mood and normal affect. Psych Mental Status: mental status grossly normal Speech and Movement: speech and movement normal Mood: congruent mood Affect: normal affect DS: Data Vitals/I&O Vitals and I&O: Vital Signs Temperature 36.6 C 01/11/24 08:10 Temperature Source Tympanic 01/11/24 08:10 Pulse 64 01/11/24 08:10 Pulse Rhythm Regular 01/10/24 20:54 Respiratory Rate 18 01/11/24 08:10 Respiratory Effort Normal, Non-Labored 01/10/24 20:54 Respiratory Depth Normal 01/10/24 20:54 Respiratory Pattern Normal 01/10/24 20:54 Blood Pressure 118/72 01/11/24 08:10 Pulse Oximetry 93 01/11/24 08:10 Oxygen Delivery Method Room Air 01/11/24 08:10 Oxygen Flow Rate 0 01/11/24 08:10 Pain Level 0 01/11/24 08:10 Comment pt states she took tylenol recently for her pain 01/09/24 15:35 Intake & Output 01/10/24 01/10/24 01/11/24 11:59 23:59 11:59 Intake Total 1233.333 / 1233.333 Output Total 550 / 1050 500 / 1050 700 / 700 Balance -550 / 183.333 733.333 / 183.333 -700 / -700 Intake: IV 983.333 / 983.333 Oral 250 / 250 Output: Urine 550 / 1050 500 / 1050 700 / 700 Other: Urine Color Yellow Yellow Yellow Urine Appearance Clear Clear Clear Comment Pt reported voiding twice since the boo was removed. there was not a hat on the toilet so amount couldn't be recorded. Voiding Methods Indwelling Catheter Toilet Toilet Data Completed and Pending Labs on day of discharge: Labs from last 24 hours 01/11/24 06:10 Sodium 134 L Potassium 4.5 Chloride 102 Carbon Dioxide 22.6 Anion Gap 9.4 BUN 31 H Creatinine 1.5 H Est GFR (CKD-EPI 2020) 34.58 Glucose 97 Calcium 8.4 L PFSH All Active Problems (Updated 01/11/24 @ 11:00 by Ashley Schultz APRN) DESTINI (acute kidney injury) (Acute) On deep vein thrombosis (DVT) prophylaxis (Acute) Discharge planning issues (Acute) Hypomagnesemia (Acute) HTN (hypertension) (Chronic) Subcapital fracture of right femur (Acute) Medical History COPD without exacerbation Social History Smoking/Tobacco Use Status: Never Tobacco: How many years used: 30 Smoking risk assessment performed?: Yes Alcohol Intake: never Drug use: Never Housing: assisted living facility Do you feel safe at home: Yes Do you feel safe in your relationship?: Yes Additional Social history: lives with Time Spent with Patient Time Spent with Patient: 45-69 minutes Time was spent: preparing to see the patient(eg.review tests), obtaining and/or reviewing separately otained hiistory, ordering medications,tests, procedures, referring, communicating with other health client care specialist, indepentently interpreting results, counseling the patient and care coordination
[2024-01-11] MEDS: Normal Saline 1,000 ML 100 ML IV (09:46)
[2024-01-11] MEDS: Celecoxib 100 MG CAP PO (09:47)
--- NOTE | 2024-01-11 11:00 | PDOC.HHF2F ---
Home Health Referral Home Health Orders Clinical synopsis of why skilled professionals are needed: This 83 years old female patient with a past medical history significant for hypertension, COPD presented H on 01/08/24 as a transfer from [facility] ER status post right hip fracture. The patient stated at that time that she had fallen 3 days ago on her right hip but as the pain subsequently got worse she was unable to ambulate with a walker prompting her to seek medical attention. Physical exam was suggestive of right hip fracture which is shortened and internally rotated right hip confirmed her imaging as well right subcapital femoral neck fracture. As [facility] did not have orthopedic surgery coverage the patient was transferred to [facility] with the case was discussed with Dr. Coronado of [facility] with plan surgery the next day. The hospitalist service admitted the patient to the medical surgical floor with a right hip fracture requiring surgical intervention. On 01/09/2024 Dr. Coronado proceeded to complete screw fixation of the proximal femur fracture on the right side. On postop day 1 creatinine elevation from 1.3-1.6 was noticed qualifying patient for DESTINI stage one without oliguria. IV fluids were initiated with creatinine of 1.5 the next day. Physical therapy recommendation on discharge is to continue home health physical therapy. The patient will be discharged home on ASA 81 mg twice a day for DVT prophylaxis, short course of 5 days scheduled acetaminophen 650 mg orally every 6 hours, Celebrex 100 mg orally twice a day. Bowel management medicine were also ordered. The patient will need to follow-up with Dr. Coronado in 4 weeks. The patient will need to follow-up with her primary care practitioner within 7 days of discharge and a follow-up basic metabolic panel prior to this appointment. Medical diagnosis necessitation home health referral: Screw fixation of the proximal femur fracture on the right side s/p Right valgus impacted subcapital femoral Neck Femur Fracture Physical Therapist: Check all that apply Increase strength & endurance for safe mobility at home: Ordered To design/establish home maintenance program: Ordered Fall reduction therapy program for patient with history of frequent falls: Ordered Home safety evaluation and teaching/gait training including stair management (if applicable): Ordered Better Breathing Program: Ordered Encounter Date and Reason: I certify that a FTF encounter for this patient was performed on January 11, 2024 and that such encounter was related to the primary reason the patient requires home health services. The encounter was conducted in the following manner: By me as the certifying physician, INVESTOR [employer]ATIONS ASSOCIATE, PA or By an inpatient physician, INVESTOR RELATIONS ASSOCIATE or PA during an inpatient stay who communicated findings to me, Certification And Authentication I certify that I composed the above information based on my clinical judgment relating to this patient's medical condition and, if applicable, clinical findings communicated to me by the NPP or inpatient physician who performed the FTF encounter. Name of Provider that will be monitoring home health services: Brina Cottrell
[2024-01-11 11:07] VITALS: BP 112/51; PULSE 62; RESP 18; TEMP 36.8; O2SAT 92
--- NOTE | 2024-01-11 18:58 | PDOC.CMDIS ---
Date of service: 01/11/24 Time of Service: 18:58 LACE Index Scoring Tool Questions: Length of Stay (in days): 3 Was the patient admitted via the E.D.?: No E.D. Visits: 0 Answers: Total Score: 3 Risk of Readmission: Low Risk Care Management Discharge Plan Reason for Hospitalization: Hip fracture Discharge Plan: Lilia returned home today with new orders for HH PT. Her daughter drove her home via private vehicle. She will follow up with Ortho, her PCP, and her discharge plan of care. She was happy to be going home. Patient/Family Education Needs: Review discharge instructions and limitations, discussion of self care needs including ask me three. Services Needed at Discharge: Home Health Care Services (HH PT) SDOH Health Related Social Needs: No Data to Display
== END 2024-01-11 14:15 | disposition home health service (06) | DRG 481 ==
PROVIDERS: Nurse Practitioner Acute Care; Student in an Organized Health Care Education/Training Program; Admitting Provider Family Medicine; PCP Family Medicine; Visit Provider Family Medicine
PROC: 0QS634Z Reposition Right Upper Femur with Internal Fixation Device, Percutaneous Approach (ICD-10-PCS; CPT 27235; principal; 2024-01-09 07:50)
DX: S72.011A Unspecified intracapsular fracture of right femur, initial encounter for closed fracture (principal); N17.9 Acute kidney failure, unspecified; E83.42 Hypomagnesemia; J44.9 Chronic obstructive pulmonary disease, unspecified; I10 Essential (primary) hypertension; W19.XXXA Unspecified fall, initial encounter
CPT/HCPCS: 27235; 00123; 36415; 80048; 85027; 94640; 97162; 97530; 99222; J1650; 73501; 83735; 85025; 94664; 99223; 99233; 99239; J0690; J1100; J2001; J2270; J2371; J2401; J2405; J2704; J3010; J3475

== ENCOUNTER 2024-01-14 12:14 | Outpatient (CLI) | payer MEDICARE, SELFPAY ==
[2024-01-14 12:02] LABS: Anion Gap 11.5 mmol/L (3-11); BUN 31 mg/dL (7-18); CO2 21.5 mmol/L (21.0-32.0); CREATININE 1.4 mg/dL (0.55-1.02); Chloride 100 mmol/L (98-107); Estimated GFR 37.56 (mL/min/1.73m2); Glucose 112 mg/dL (74-106); Potassium 4.8 mmol/L (3.5-5.1); Sodium 133 mmol/L (136-145)
== END 2024-01-14 12:15 | disposition home or self-care (01) ==
LOC: LBO 12:14
PROVIDERS: PCP Family Medicine; Visit Provider Nurse Practitioner Acute Care
DX: N17.9 Acute kidney failure, unspecified (principal)
CPT/HCPCS: 36415; 80048

== ENCOUNTER 2024-02-08 10:59 | Outpatient (CLI) | payer MEDICARE, SELFPAY ==
--- NOTE | 2024-02-08 10:00 | DI.RAD_ITS ---
Exam(s) XR HIP RT AP LAT ONLY EXAM: XR HIP RT AP LAT ONLY CLINICAL HISTORY: R FEMUR FX. TECHNIQUE: 2D digital imaging was performed. COMPARISON: XA XR HIP RT IN OR from 01/09/2024 FINDINGS: 3 views Again noted are the 3 screws which replace across the femoral neck fracture on 01/09/2024. Appearanc e is stable. No hardware migration. No evidence of osteomyelitis. Some healing is evident. Joint space of the right hip appears unchanged from 01/09/2024. IMPRESSION: Satisfactory appearance DATA REPOSITORY: RADIATION DOSE DELIVERED:
== END 2024-02-08 11:00 | disposition home or self-care (01) ==
LOC: DIORS 10:59
PROVIDERS: PCP Family Medicine; Referring Provider Family Medicine; Visit Provider Student in an Organized Health Care Education/Training Program
DX: S72.011D Unspecified intracapsular fracture of right femur, subsequent encounter for closed fracture with routine healing; X58.XXXD Exposure to other specified factors, subsequent encounter
CPT/HCPCS: 73502

== ENCOUNTER 2024-03-07 13:03 | Outpatient (CLI) | payer MEDICARE, SELFPAY ==
--- NOTE | 2024-03-07 11:30 | DI.RAD_ITS ---
Exam(s) XR HIP RT AP LAT ONLY EXAM: XR HIP RT AP LAT ONLY INDICATION: F/U FX. COMPARISON: CR XR HIP RT AP LAT ONLY from 02/08/2024 TECHNIQUE: 2D digital imaging was performed. Two views. FINDINGS: No change in fracture or hardware alignment. Moderate degenerative changes noted in the right hip clyde int. The findings. DATA REPOSITORY: RADIATION DOSE DELIVERED:
--- OUTSIDE RECORDS SUMMARY | 2024-03-07 13:07 | XMS_ITS | Continuity of Care Document ---
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 Name Role Phone Brina Cottrell Primary Care Physician Encounter [facility] FIN NBR [id number] Date(s): 06/26/22 - 06/26/[address] [id number] Encounter Diagnosis Family history of cancer of colon(Discharge Diagnosis) - 06/26/22 Tubular adenoma of colon(Discharge Diagnosis) - 06/26/22 Diverticulosis of colon(Discharge Diagnosis) - 06/26/22 History of fundoplication(Discharge Diagnosis) - 06/26/[address] scan(Discharge Diagnosis) - 06/26/22 Discharge Disposition: Home or Self Care Attending Physician: Denton Jc MD Admitting Physician: Denton Jc MD Referring Physician: Denton Jc MD Allergies, Adverse Reactions, Alerts Substance Reaction Severity Status erythromycin Stomach upset Unknown Active amitriptyline Unknown Active Desipramine Hydrochloride Uneasy Unknown Ac tive Doxycycline Monohydrate Nausea Unknown Acti ve Assessment and Plan Future Appointments Functional Status 06/26/22 ADLs Independent Other exposure to Infectious Disease Non e Medications acetaminophen 500 mg oral tablet 500 mg = 1 tab, Oral, every 4 hr, PRN as needed for pain, # 24 tab, 0 Refill(s) Start Date: 06/22/22 Status: Ordered albuterol 90 mcg/inh aerosol inhaler 1 puffs, Inhale, every 4 hr, PRN as needed for wheezing, # 6.7 g, 0 Refill(s) Start Date: 06/22/22 Status: Ordered amLODIPine 10 mg oral tablet 10 mg = 1 tab, Oral, Daily, # 90 tab, 0 Refill(s) Start Date: 06/22/22 Status: Ordered atorvastatin 10 mg oral tablet 10 mg = 1 tab, Oral, Daily, # 30 tab, 0 Refill(s) Start Date: 06/22/22 Status: Ordered cholecalciferol 1000 intl units oral capsule 25 mcg = 1 cap, Oral, Daily, # 100 cap, 0 Refill(s) Start Date: 06/22/22 Status: Ordered cyclobenzaprine 10 mg oral tablet 10 mg = 1 tab, Oral, Daily, PRN as needed for muscle spasm, # 30 tab, 0 Refill(s) Start Date: 06/22/22 Status: Ordered fexofenadine 180 mg oral tablet 180 mg = 1 tab, Oral, Daily, # 30 tab, 0 Refill(s) Start Date: 06/22/22 Status: Ordered fluticasone 100 mcg inhalation powder 1 puffs, Inhale, Daily, # 120 EA, 0 Refill(s) Start Date: 06/22/22 Status: Ordered fluticasone 50 mcg/inh nasal spray 1 sprays, Nasal, every morning, 0 Refill(s) Start Date: 06/22/22 Status: Ordered lisinopril 40 mg oral tablet 40 mg = 1 tab, Oral, Daily, # 30 tab, 0 Refill(s) Start Date: 06/22/22 Status: Ordered magnesium hydroxide 400 mg oral tablet, chewable 1, Oral, Daily, 0 Refill(s) Start Date: 06/22/22 Status: Ordered metoprolol tartrate 25 mg oral tablet 25 mg = 1 tab, Oral, BID, # 60 tab, 0 Refill(s) Start Date: 06/22/22 Status: Ordered multivitamin adult, oral tablet 1 tab, Oral, Daily, # 30 tab, 0 Refill(s) Start Date: 06/22/22 Status: Ordered omeprazole 40 mg oral delayed release capsule 40 mg = 1 cap, Oral, Daily, # 30 cap, 0 Refill(s) Start Date: 06/22/22 Status: Ordered simethicone 125 mg oral capsule 125 mg = 1 cap, Oral, QID, # 30 cap, 0 Refill(s) Start Date: 06/22/22 Status: Ordered solifenacin 10 mg oral tablet 10 mg = 1 tab, Oral, Daily, # 30 tab, 0 Refill(s) Start Date: 06/22/22 Status: Ordered thiamine 0 Refill(s) Start Date: 06/22/22 Status: Ordered triamcinolone 0.1% topical cream See Instructions, 1 abel Topical 14 days, 0 Refill(s) Start Date: 06/22/22 Status: Ordered Problem List Condition Confirmation Course Effective Dates Status Health Status Informant Angina Confirmed Active Anxiety Confirmed Active Cervical disc disease Confirmed Active CKD stage 4 Confirmed Active COPD - Chronic obstructive pulmonary disease Confirmed Active Diverticulitis Confirmed Active Diverticulosis of colon Confirmed Active Esophageal reflux Confirmed Active Family history of cancer of colon Confirmed Active Hearing loss Confirmed Active HTN - Hypertension Confirmed Active Hypertriglyceridemia Confirmed Active Migraine Confirmed Active Palpitations Confirmed Active Pulmonary disease Confirmed Active Tubular adenoma of colon Confirmed Active Ventricular bigeminy 1 Confirmed Active 1Holter monitor 2006 Benign ventricular ectopy w/bigeminy Procedures Procedure Date Related Diagnosis Body Site Status EGD AND COLONOSCOPY WITH BIOPSY 1 06/26/22 Completed Cardiac catheterization 2 Completed Colonoscopy Completed Nicki fundoplication Com pleted 1auto-populated from documented surgical case [id number] normal Vital Signs Most recent to oldest [Reference Range]: 1 2 3 Temperature Temporal Artery [36-38 Deg C] 36.0 Deg C (06/26/22 11:35 AM) 36.0 Deg C (06/26/22 11:07 AM) 36.4 Deg C (06/26/22 9:37 AM) Temperature Temporal Artery (DegF) [97.3-100 Deg F] 96.8 Deg F *LOW* (06/26/22 11:07 AM) Peripheral Pulse Rate [60-100 bpm] 63 bpm (06/26/22 11:11 AM) 61 bpm (06/26/22 11:07 AM) 16 bpm *LOW* (06/26/22 9:37 AM) Respiratory Rate [12-24 br/min] 16 br/min (06/26/22 9:37 AM) Blood Pressure [90-140/60-90 mmHg] 132/56mmHg (06/26/22 11:11 AM) 132/56mmHg (06/26/22 11:07 AM) 145/70mmHg *HI* (06/26/22 9:37 AM) Mean Arterial Pressure, Cuff [65-140 mmHg] 81 mmHg (06/26/22 11:11 AM) 81 mmHg (06/26/22 11:07 AM) Mean Arterial Pressure Cuff 80 mmHg (06/26/22 11:11 AM) 80 mmHg (06/26/22 11:07 AM) Weight 74.390 kg (06/25/22 9:18 AM) Weight Dosing 74.390 kg (06/25/22 9:18 AM) Height 160.020 cm (06/26/22 9:37 AM) 160.020 cm (06/25/22 9:18 AM) Height/Length Dosing 160.020 cm (06/26/22 9:37 AM) 160.020 cm (06/25/22 9:18 AM) Social History Social History Type Response Tobacco Former tobacco user Tobacco Use:. Sex Hospital Discharge Instructions Patient Education 06/26/2022 10:13:04 Upper Endoscopy, Adult, Care After Upper Endoscopy, Adult, Care After This sheet gives you information about how to care for yourself after your procedure. Your health care provider may also give you more specific instructions. If you have problems or questions, contact your health care provider. What can I expect after the procedure? After the procedure, it is common to have: ??? A sore throat. ??? Mild stomach pain or discomfort. ??? Bloating. ??? Nausea. Follow these instructions at home: ??? Follow instructions from your health care provider about what to eat or drink after your procedure. ??? Return to your normal activities as told by your health care provider. Ask your health care provider what activities are safe for you. ??? Take agve-tph-zwylpiv and prescription medicines only as told by your health care provider. ??? If you were given a sedative during the procedure, it can affect you for several hours. Do not drive or operate machinery until your health care provider says that it is safe. ??? Keep all follow-up visits as told by your health care provider. This is important. Contact a health care provider if you have: ??? A sore throat that lasts longer than one day. ??? Trouble swallowing. Get help right away if: ??? You vomit blood or your vomit looks like coffee grounds. ??? You have: ??? A fever. ??? Bloody, black, or tarry stools. ??? A severe sore throat or you cannot swallow. ??? Difficulty breathing. ??? Severe pain in your chest or abdomen. Summary ??? After the procedure, it is common to have a sore throat, mild stomach discomfort, bloating, andnausea. ??? If you were given a sedative during the procedure, it can affect you for several hours. Do not drive or operate machinery until your health care provider says that it is safe. ??? Follow instructions from your health care provider about what to eat or drink after your procedure. ??? Return to your normal activities as told by your health care provider. This information is not intended to replace advice given to you by your health care provider. Make sure you discuss any questions you have with your health care provider. Document Revised: 08/14/2020 Document Reviewed: 01/17/2019 [employer] Patient Education ?? 2021 [employer]. 06/26/2022 10:13:02 Colon Polyps Colon Polyps Colon polyps are tissue growths inside the colon, which is part of the large intestine. They are one of the types of polyps that can grow in the body. A polyp may be a round bump or a mushroom-shapedgrowth. You could have one polyp or more than one. Most colon polyps are noncancerous (benign). However, some colon polyps can become cancerous over time. Finding and removing the polyps early can help prevent this. What are the causes? The exact cause of colon polyps is not known. What increases the risk? The following factors may make you more likely to develop this condition: ??? Having a family history of colorectal cancer or colon polyps. ??? Being older than 45 years of age. ??? Being younger than 45 years of age and having a significant family history of colorectal canceror colon polyps or a genetic condition that puts you at higher risk of getting colon polyps. ??? Having inflammatory bowel disease, such as ulcerative colitis or Crohn's disease. ??? Having certain conditions passed from parent to child (hereditary conditions), such as: ??? Familial adenomatous polyposis (FAP). ??? Gaviria syndrome. ??? Turcot syndrome. ??? Peutz???Jeghers syndrome. ??? MUTYH-associated polyposis (MAP). ??? Being overweight. ??? Certain lifestyle factors. These include smoking cigarettes, drinking too much alcohol, not getting enough exercise, and eating a diet that is high in fat and red meat and low in fiber. ??? Having had childhood cancer that was treated with radiation of the abdomen. What are the signs or symptoms? Many times, there are no symptoms. If you have symptoms, they may include: ??? Blood coming from the rectum during a bowel movement. ??? Blood in the stool (feces). The blood may be bright red or very dark in color. ??? Pain in the abdomen. ??? A change in bowel habits, such as constipation or diarrhea. How is this diagnosed? This condition is diagnosed with a colonoscopy. This is a procedure in which a lighted, flexible scope is inserted into the opening between the buttocks (anus) and then passed into the colon to examine the area. Polyps are sometimes found when a colonoscopy is done as part of routine cancer screening tests. How is this treated? This condition is treated by removing any polyps that are found. Most polyps can be removed during a colonoscopy. Those polyps will then be tested for cancer. Additional treatment may be needed depending on the results of testing. Follow these instructions at home: Eating and drinking ??? Eat foods that are high in fiber, such as fruits, vegetables, and whole grains. ??? Eat foods that are high in calcium and vitamin D, such as milk, cheese, yogurt, eggs, liver, fish, and broccoli. ??? Limit foods that are high in fat, such as fried foods and desserts. ??? Limit the amount of red meat, precooked or cured meat, or other processed meat that you eat, such as hot dogs, sausages, alcocer, or meat loaves. ??? Limit sugary drinks. Lifestyle ??? Maintain a healthy weight, or lose weight if recommended by your health care provider. ??? Exercise every day or as told by your health care provider. ??? Do not use any products that contain nicotine or tobacco, such as cigarettes, e-cigarettes, andchewing tobacco. If you need help quitting, ask your health care provider. ??? Do not drink alcohol if: ??? Your health care provider tells you not to drink. ??? You are , may be , or are planning to become . ??? If you drink alcohol: ??? Limit how much you use to: ??? 0???1 drink a day for women. ??? 0???2 drinks a day for men. ??? Know how much alcohol is in your drink. In the [place] one drink equals one 12 oz bottle of beer (355 mL), one 5 oz glass of wine (148 mL), or one 1?? oz glass of hard liquor (44 mL). General instructions ??? Take jhxx-rju-blbzeqa and prescription medicines only as told by your health care provider. ??? Keep all follow-up visits. This is important. This includes having regularly scheduled colonoscopies. Talk to your health care provider about when you need a colonoscopy. Contact a health care provider if: ??? You have new or worsening bleeding during a bowel movement. ??? You have new or increased blood in your stool. ??? You have a change in bowel habits. ??? You lose weight for no known reason. Summary ??? Colon polyps are tissue growths inside the colon, which is part of the large intestine. They are one type of polyp that can grow in the body. ??? Most colon polyps are noncancerous (benign), but some can become cancerous over time. ??? This condition is diagnosed with a colonoscopy. ??? This condition is treated by removing any polyps that are found. Most polyps can be removed during a colonoscopy. This information is not intended to replace advice given to you by your health care provider. Make sure you discuss any questions you have with your health care provider. Document Revised: 12/05/2020 Document Reviewed: 12/05/2020 [employer] Patient Education ?? 2021 [employer]. 06/26/2022 10:12:59 Colonoscopy, Adult, Care After Colonoscopy, Adult, Care After This sheet gives you information about how to care for yourself after your procedure. Your health care provider may also give you more specific instructions. If you have problems or questions, contact your health care provider. What can I expect after the procedure? After the procedure, it is common to have: ??? A small amount of blood in your stool for 24 hours after the procedure. ??? Some gas. ??? Mild cramping or bloating of your abdomen. Follow these instructions at home: Eating and drinking ??? Drink enough fluid to keep your urine pale yellow. ??? Follow instructions from your health care provider about eating or drinking restrictions. ??? Resume your normal diet as instructed by your health care provider. Avoid heavy or fried foods that are hard to digest. Activity ??? Rest as told by your health care provider. ??? Avoid sitting for a long time without moving. Get up to take short walks every 1???2 hours. This is important to improve blood flow and breathing. Ask for help if you feel weak or unsteady. ??? Return to your normal activities as told by your health care provider. Ask your health care provider what activities are safe for you. Managing cramping and bloating ??? Try walking around when you have cramps or feel bloated. ??? Apply heat to your abdomen as told by your health care provider. Use the heat source that your health care provider recommends, such as a moist heat pack or a heating pad. ??? Place a towel between your skin and the heat source. ??? Leave the heat on for 20???30 minutes. ??? Remove the heat if your skin turns bright red. This is especially important if you are unable to feel pain, heat, or cold. You may have a greater risk of getting burned. General instructions ??? If you were given a sedative during the procedure, it can affect you for several hours. Do not drive or operate machinery until your health care provider says that it is safe. ??? For the first 24 hours after the procedure: ??? Do not sign important documents. ??? Do not drink alcohol. ??? Do your regular daily activities at a slower pace than normal. ??? Eat soft foods that are easy to digest. ??? Take dbav-ylr-uvpwmqb and prescription medicines only as told by your health care provider. ??? Keep all follow-up visits as told by your health care provider. This is important. Contact a health care provider if: ??? You have blood in your stool 2???3 days after the procedure. Get help right away if you have: ??? More than a small spotting of blood in your stool. ??? Large blood clots in your stool. ??? Swelling of your abdomen. ??? Nausea or vomiting. ??? A fever. ??? Increasing pain in your abdomen that is not relieved with medicine. Summary ??? After the procedure, it is common to have a small amount of blood in your stool. You may also have mild cramping and bloating of your abdomen. ??? If you were given a sedative during the procedure, it can affect you for several hours. Do not drive or operate machinery until your health care provider says that it is safe. ??? Get help right away if you have a lot of blood in your stool, nausea or vomiting, a fever, or increased pain in your abdomen. This information is not intended to replace advice given to you by your health care provider. Make sure you discuss any questions you have with your health care provider. Document Revised: 08/10/2020 Document Reviewed: 03/12/2020 [employer] Patient Education ?? 2021 [employer] Follow Up Care 06/13/2022 09:58:45 With:Return to this practice Address:Unknown When:1 month Patient Care team information Personnel Name: Brina Cottrell Address: Address: [address] [place] [id number]
--- OUTSIDE RECORDS SUMMARY | 2024-03-07 13:07 | XMS_ITS | Continuity of Care Document ---
Author Name Unknown Organization [facility] Ambulatory Clinics Address [address] [place] [address] Care Team Providers Care Front End Technician Name Role Phone Brina Cottrell Primary Care Physician Encounter [facility] NBR [id number] Date(s): 07/23/22 - 07/23/22 [facility] Ambulatory Clinics [address], [place] [address] Encounter Diagnosis Diverticulosis of colon(Discharge Diagnosis) - 07/23/22 Esophageal reflux(Discharge Diagnosis) - 07/23/22 Tubular adenoma of colon(Discharge Diagnosis) - 07/23/22 Discharge Disposition: Home or Self Care Attending Physician: Sophia Eden APRN Allergies, Adverse Reactions, Alerts Substance Reaction Severity Status erythromycin Stomach upset Unknown Active amitriptyline Unknown Active Desipramine Hydrochloride Uneasy Unknown Ac tive Doxycycline Monohydrate Nausea Unknown Acti ve Functional Status 07/23/22 Other exposure to Infectious Disease Non e [...] Com pleted 1auto-populated from documented surgical case [id number] normal Vital Signs Most recent to oldest [Reference Range]: 1 Temperature Temporal Artery [36-38 Deg C ] 36.3 Deg C (07/23/22 2:03 PM) Peripheral Pulse Rate [60-100 bpm] 69 bp m (07/23/22 2:03 PM) Respiratory Rate [12-24 br/min] 20 br/mi n (07/23/22 2:03 PM) Blood Pressure [90-140/60-90 mmHg] 130/7 0mmHg (07/23/22 2:03 PM) Weight 85 kg (07/23/22 2:03 PM) Weight Measured (lbs) 187.393 lb (07/23/22 2:03 PM) [place] Body Weight Calculated 52.4 kg (07/23/22 2:03 PM) Height 160.02 cm (07/23/22 2:03 PM) Height/Length Measured (inches) 63 inch (07/23/22 2:03 PM) BSA Measured 1.94 m2 (07/23/22 2:03 PM) Body Mass Index 33.19 kg/m2 (07/23/22 2:03 PM) Social History Social History Type Response Tobacco Former tobacco user Tobacco Use:. Sex Physician Outpatient Note * Sophia Eden APRN: PERFORM Event Display: Office Clinic Note Physician Authored Date: [id number] ESCOBAR ZAFAR :1940 Age:82 years Sex:Female Visit Date:07/23/2022 Primary Care Physician: Brina Cottrell Chief Complaint Follow-up EGD and colonoscopy History of Present Illness Patient is a 81??female here today at the request of Dr. Cottrell for??for abdominal pain, and a history of colon polyps. ??She is an established patient here today for follow-up of EGD and colonoscopy. ?? In December or January of this year she started having bilateral abdominal pain and nausea. She denies any vomiting if she is having Nicki Fundoplication. Denies any constipation, diarrhea, melena or hematochezia. Weight and appetite are stable. Rarely has pyrosis or dyspepsia, she eats spicy food which she reports for the most part. Denies any dysphagia or globus sensation. Denies any dysphagia. She isunsure if eating helps or worsens or symptoms.? Currently she denies any nausea??or abdominal pain.?? Her other GI symptoms are unchanged. ?? Takes omeprazole 40 mg daily.? 01/31/2022 complete metabolic panel showed creatinine elevated 1.63, alkaline phosphatase 122, CBC with a hemoglobin 11.9 and hematocrit 35.7 otherwise normal. ?? 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 There was a prominent uterine mass likelyfibroid without changes. ?? 2004 colonoscopy showed a benign polyp with recommendation to follow-up in 3 years. Report is not available. ?? 02/2010 patient had a colonoscopy. No report available. ?? 06/16/2013 patient had colonoscopy with a tubular normal with recommendation to repeat in 5 years. No report available. ?? 08/12/2018 patient had colonoscopy with hyperplastic polyp with recommendation to follow-up in 5 years. ?? Patient had a Nicki fundoplication in 2001. ?? Patient's medical history includes LPR, chronic kidney disease, hypertension, diverticulitis and asthma. ?? 06/26/2022 patient had a??EGD showing a duodenal polyp that was??reactive changes seen on pathology.?? Intact fundoplication. ??No celiac disease or H. pylori infection.?? 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 ?? On 06/26/2022 patient had a colonoscopy showing a 1.8 cm??tubular adenoma??at the flexure??that wasnot completely resected. ??The area was tattooed.?? There was a 4 x 6 cm??polyp at the splenic flexure??that was resected.?? There was sigmoid diverticulosis seen.?? [facility]. ?? Patient's mother had colon cancer. ? Review of Systems Pertinent positives and negatives are discussed in HPI. Physical Exam Vitals & Measurements T:??36.3?C ??(Temporal Artery)?? HR:??69??(Peripheral)?? RR:??20?? BP:??130/70?? SpO2:??93%?? HT:??160.02??cm?? WT:??85??kg?? BMI:??33.19?? BSA:??1.94?? PolypsDiscussed findings of colonoscopy with patient showing sigmoid diverticulosis and 2 largeGeneral: Well-nourished well-developed??Female??in no acute distress. HEENT: Head is normocephalic, trachea midline, and no cervical lymphadenopathy.?? Hearing aids bilaterally. Respiratory: Respirations are even and unlabored. ??Lungs are clear to auscultation. Cardiovascular: Regular rate and rhythm with S1 and S2. Abdomen: Positive bowel sounds x4 quadrants, no masses, no guarding, no tenderness. ??No hepatosplenomegaly. ??Abdomen is soft. Skin: Warm, dry, and pink. Neurological: Alert and oriented x3, speech is clear and gait is steady. Psychological: Pleasant, calm and cooperative. Assessment/Plan 1.??Diverticulosis of colon??K57.30 Discussed findings of colonoscopy with patient showing??diverticulosis which recommend a high-fiberdiet. ??Colon. ??She also had 2 large??polyps??1 was 8.8 cm that was a tubular adenoma??at the flexure that could not be completely always resected. ??The area was tattooed.?? She has been referred to [facility] for advanced polypectomy. 2.??Esophageal reflux??K21.9 Denies any symptoms of symptoms with omeprazole 40 mg daily.?? No H. pylori infection or celiac disease seen.?? Her fundoplication was intact. ??She had benign??duodenal polyp.?? Advised to continue omeprazole 40 mg daily. 3.??Tubular adenoma of colon??D12.6 As above. Follow-up as needed. Problem List/Past Medical History Ongoing Angina Anxiety Cervical disc disease CKD stage 4 COPD - Chronic obstructive pulmonary disease Diverticulitis Diverticulosis of colon Esophageal reflux Family history of cancer of colon Hearing loss HTN - Hypertension Hypertriglyceridemia Migraine Palpitations Pulmonary disease Tubular adenoma of colon Ventricular bigeminy Historical No qualifying data Procedure/Surgical History ???EGD AND COLONOSCOPY WITH BIOPSY (06/26/2022)???Cardiac catheterization???Colonoscopy???Nicki fundoplication Medications acetaminophen 500 mg oral tablet, 500 mg= 1 tab, Oral, every 4 hr, PRN albuterol 90 mcg/inh aerosol inhaler, 1 puffs, Inhale, every 4 hr, PRN amLODIPine 10 mg oral tablet, 10 mg= 1 tab, Oral, Daily atorvastatin 10 mg oral tablet, 10 mg= 1 tab, Oral, Daily cholecalciferol 1000 intl units oral capsule, 25 mcg= 1 cap, Oral, Daily cyclobenzaprine 10 mg oral tablet, 10 mg= 1 tab, Oral, Daily, PRN fexofenadine 180 mg oral tablet, 180 mg= 1 tab, Oral, Daily fluticasone 100 mcg inhalation powder, 1 puffs, Inhale, Daily fluticasone 50 mcg/inh nasal spray, 1 sprays, Nasal, every morning lisinopril 40 mg oral tablet, 40 mg= 1 tab, Oral, Daily magnesium hydroxide 400 mg oral tablet, chewable, 1, Oral, Daily metoprolol tartrate 25 mg oral tablet, 25 mg= 1 tab, Oral, BID multivitamin adult, oral tablet, 1 tab, Oral, Daily omeprazole 40 mg oral delayed release capsule, 40 mg= 1 cap, Oral, Daily simethicone 125 mg oral capsule, 125 mg= 1 cap, Oral, QID solifenacin 10 mg oral tablet, 10 mg= 1 tab, Oral, Daily thiamine triamcinolone 0.1% topical cream, See Instructions Allergies Desipramine Hydrochloride??(Uneasy) Doxycycline Monohydrate??(Nausea) amitriptyline erythromycin??(Stomach upset) Social History Alcohol Never Electronic Cigarette/Vaping Electronic Cigarette Use: Never. Tobacco Former tobacco user Tobacco Use:. Family History Family history is negative Electronically Signed on 07/23/22 02:31 PM Sophia Eden APRN Patient Care team information Personnel Name: Brina Cottrell Address: Address: [address] [place] [id number]
== END 2024-03-07 13:04 | disposition home or self-care (01) ==
LOC: DIORS 13:05
PROVIDERS: PCP Family Medicine; Referring Provider Family Medicine; Visit Provider Student in an Organized Health Care Education/Training Program
DX: S72.011D Unspecified intracapsular fracture of right femur, subsequent encounter for closed fracture with routine healing (principal); X58.XXXD Exposure to other specified factors, subsequent encounter
CPT/HCPCS: 73502

== ENCOUNTER 2024-04-04 10:50 | Outpatient (CLI) | payer MEDICARE, SELFPAY ==
--- NOTE | 2024-04-04 10:30 | DI.RAD_ITS ---
Exam(s) XR HIP RT AP LAT ONLY EXAM: XR HIP RT AP LAT ONLY INDICATION: F/U R FEMUR FX. COMPARISON: CR XR HIP RT AP LAT ONLY from 02/08/2024 CR XR HIP RT AP LAT ONLY from 03/07/2024 TECHNIQUE: 2D digital imaging was performed. Two views. FINDINGS: Stable fracture and hardware alignment. No new abnormalities. Moderate degenerative changes noted o f the right hip joint. DATA REPOSITORY: RADIATION DOSE DELIVERED:
== END 2024-04-04 10:51 | disposition home or self-care (01) ==
LOC: DIORS 10:50
PROVIDERS: PCP Family Medicine; Referring Provider Family Medicine; Visit Provider Student in an Organized Health Care Education/Training Program
DX: S72.011D Unspecified intracapsular fracture of right femur, subsequent encounter for closed fracture with routine healing (principal); X58.XXXD Exposure to other specified factors, subsequent encounter
CPT/HCPCS: 73502